=== PATIENT | male | born 1960 | race Caucasian/White ===

== ENCOUNTER 2022-12-12 17:24 | Emergency (ER) | payer OTHER, SELFPAY ==
--- NOTE | ~2022-12-12 | XR_ITS ---
EXAMINATION: XR WRIST, LEFT XR HAND, LEFT CLINICAL INFORMATION: Pain COMPARISON: None available. TECHNIQUE: 3 views frontal lateral oblique FINDINGS: LEFT WRIST: The bones and soft tissues are normal. No fracture. Alignment is anatomic. Joint spaces are maintained. No erosions or soft tissue calcifications. LEFT HAND: Mild degenerative osteoarthritic changes involving interphalangeal joints especially distal row all fingers. No evidence of bone erosions. Bone alignments are anatomic. XR/XR hand wrist LT IMPRESSION: * Mild degenerative osteoarthritis. * No fracture. * No bone erosions.
[2022-12-12 18:38] VITALS: BP 175/105; PULSE 89; RESP 16; TEMP 36.4; O2SAT 99; BMI 29.9
--- NOTE | 2022-12-12 18:39 | ED.GENADULT ---
HPI - General Adult General Chief complaint: Extremity Injury, Upper Stated complaint: left thumb injury at work Time Seen by Provider: 12/12/22 21:08 Source: patient Mode of arrival: ambulatory Limitations: no limitations History of Present Illness HPI narrative: Patient is a 62 old male presents emergency department for evaluation of traumatic left thumb pain. He states that while at work yesterday he sustained injury causing his left thumb to hyperextend backwards. He is having pain at the base of the thumb with intermittent numbness and tingling to the tip. Pain radiates into the wrist. Denies any prior injury. Related Data Allergies Allergy/AdvReac Type Severity Reaction Status Date / Time No Known Allergies Allergy Verified 12/12/22 18:45 Review of Systems Review of Systems: Yes all other systems are reviewed and are negative PMFSH Past Medical History Attestation statement: The following information was validated with the patient. Source: old records reviewed Social History Social History Advance Directives: No Advance Directives Information Provided: No Physical Exam ED Vital Signs: Vital Signs - 24 hr 12/12/22 18:38 Temperature 97.6 F Pulse Rate 89 Respiratory Rate 16 Blood Pressure 175/105 H Pulse Oximetry 99 Oxygen Delivery Method Room Air BMI result Body Mass Index 29.9 Appearance: Alert.?Oriented to person, place and time. No acute distress.?Normal affect. Neck: Normal inspection.? Neck supple.?? CVS: Heart sounds normal. Normal heart rate and rhythm.? Pulses normal.?? Respiratory: No respiratory distress.? Lung sounds clear to auscultation bilaterally??? Skin: Skin warm and dry.? Normal skin color.? Extremities: No extremity edema. No obvious deformity. 2+ radial pulse bilaterally. No tenderness upon palpation at the anatomical snuffbox. Neuro: Moves all extremities spontaneously. Sensation intact bilaterally. Ambulates with normal steady gait. Course Course Course Narrative: This is an RME: Additional HPI, ROS, PE not included below will be deferred to primary provider. This is a [id number]-male, hx of hypertension, presenting to the emergency department with complaints of left thumb pain since yesterday. Reports that his left thumb bent backwards during work yesterday. Now having pain, numbness, tingling throughout fingers, hands, and wrist. Plan: xr hand and wrist ordered Medical Decision Making Medical Decision Making MDM Narrative: Patient is a 62-year-old male presents emergency department for evaluation of traumatic left thumb pain as per HPI. At the time my examination there is no obvious deformity, extremity is neurovascularly intact distally. There is no point tenderness at the anatomical snuffbox. XR imaging reveals osteoarthritis no acute fracture dislocation. Reviewed these findings with patient. Stable for discharge home, advised treatment with acetaminophen/ibuprofen, rest, ice, Alcides bandage. Differential Diagnosis Differential Diagnoses: The differential diagnosis associated with the presentation includes (Fracture, dislocation, neurovascular compromise) Independent Interpretation I performed an independent interpretation of an: Plain X-Ray (I have personally interpreted XR imaging of the left hand/wrist and agree with radiologist impression. There is no acute fracture.) Radiology Impression Discussion of test interpretation with radiology: I have reviewed the radiologist's reading. Radiologist Impression: XR/XR hand wrist LT IMPRESSION: ? *? Mild degenerative osteoarthritis. ? *? No fracture. ? *? No bone erosions. Prescription Management I considered prescription management with: Pain Medication (After evaluation felt that [id number] acetaminophen ibuprofen were appropriate.) Discharge Plan Discharge Clinical Impression: Finger sprain, Osteoarthritis Patient Disposition: Home, Self-Care Instructions: Finger Sprain (ED) Additional Instructions: X-ray imaging does not show any fracture. There is however evidence of osteoarthritis. You can take ibuprofen 200 mg, 3 tablets (600mg) every 6-8 hours as needed for pain, in addition to Tylenol 500 mg, 2 tablets (1,000mg) every 4-6 hours as needed for pain, but not to exceed 3 doses daily (3,000mg).? Apply ice to the area for 10-15 minutes 3-4 times daily. Use Alcides bandage as tolerated for comfort. Referrals: Physician,Unknown J [Primary Care Provider] -
[2022-12-12 22:45] VITALS: BP 195/112; PULSE 66; RESP 18; O2SAT 97
== END 2022-12-12 22:58 | disposition home or self-care (01) ==
PROVIDERS: Emergency Provider Emergency Medicine
DX: S63.602A Unspecified sprain of left thumb, initial encounter (principal); M19.042 Primary osteoarthritis, left hand; M79.642 Pain in left hand; Y29.XXXA Contact with blunt object, undetermined intent, initial encounter; Y93.9 Activity, unspecified; Y92.9 Unspecified place or not applicable; Y99.0 Civilian activity done for income or pay
CPT/HCPCS: 73110; 73130; 99283